=== PATIENT | female | born 1980 | race Caucasian/White ===

== ENCOUNTER 2017-09-15 17:11 | Inpatient (IN) ==
[~2017-09-15 17:11] MED LIST: Glycopyrrolate Inj 1 MG/5 ML Syringe IV.PUSH ONE
[2017-09-15] MEDS ORDERED: Vancomycin Inj 1 GM/200 ML PIGGYBACK IV.SIG ONE (17:33)
[2017-09-15] MEDS ORDERED: Ampicillin/Sulbactam Inj 3 GM in Sodium Chloride 0.9% Inj 100 ML IV.SIG ONE (17:33)
[2017-09-15] MEDS ORDERED: Sod Chloride 0.9% Inj 1,000 ML IV.SIG ONE (17:33)
[2017-09-15] MEDS ORDERED: Dexamethasone Inj 20 MG/5 ML Vial IV.PUSH ONE (17:47)
[2017-09-15 18:11] LABS: Baso # (Auto) 0.2 th/mm3 (0.0-0.2); Baso % (Auto) 1.6 % (0.0-2.0); Hematocrit 29.9 % (35.0-46.0); Hemoglobin 9.5 gm/dL (11.6-15.3); Lymph # (Auto) 0.9 th/mm3 (1.0-4.8); Lymph % (Auto) 5.9 % (9.0-44.0); Mean Corpuscular HGB Conc 31.7 % (32.0-36.0); Mean Corpuscular Hemoglobin 22.7 pg (27.0-34.0); Mean Corpuscular Volume 71.5 fL (80.0-100.0); Mean Platelet Volume 9.2 fL (7.0-11.0); Mono # (Auto) 0.8 th/mm3 (0.0-0.9); Mono % (Auto) 5.2 % (0.0-8.0); Neut # (Auto) 12.6 th/mm3 (1.8-7.7); Neut % (Auto) 87.3 % (16.0-70.0); Platelet Count 484 th/mm3 (150-450); Red Blood Count 4.18 mil/mm3 (4.00-5.30); Red Cell Distribution Width 20.2 % (11.6-17.2); White Blood Count 14.5 th/mm3 (4.0-11.0)
[2017-09-15 18:21] LABS: Chloride 99 meq/L (98-107); Potassium 3.9 meq/L (3.5-5.1); Sodium 137 meq/L (136-145)
[2017-09-15 18:24] LABS: Calcium 9.1 mg/dL (8.5-10.1)
--- NOTE | 2017-09-15 18:24 | ED ---
HPI General Chief complaint: Dental/Oral Stated complaint: Swollen tongue/diff swallowing Time Seen by Provider: 09/15/17 17:27 History of Present Illness HPI narrative: This is a 37-year-old female who presents to the emergency department having had a wisdom tooth extraction 5 days ago, reporting increasing tongue swelling since then. Her tongue has gotten more swollen, constant, severe and she started to have some neck swelling. She is feels like she is gotten much worse in the past day. She has been feeling feverish. She has been unable to eat or drink for 2-3 days. She denies any trouble breathing at this time. Related Data Home Medications Medication Instructions Recorded Confirmed amoxicillin 500 mg PO TID 09/15/17 09/15/17 hydrocodone-acetaminophen 1 tab PO Q4-6H PRN 09/15/17 09/15/17 Allergies Allergy/AdvReac Type Severity Reaction Status Date / Time No Known Allergies Allergy Verified 09/15/17 17:18 Review of Systems Except as stated in HPI: all other systems reviewed are negative [facility] Medical History Medical History Patient denies medical problems (Acute) Surgical History Surgical History No history of previous surgery (Acute) Social History Social History Substance History: Active Abuse Second Hand Smoke Exposure: No Smoking Status: Never smoker How Often Do You Have a Drink Containing Alcohol: 2 to 4 times a month Recent Travel in [facility] within the Last 8 Weeks: No Recent Out of Country Travel within the Last 8 Weeks: No Substance Abuse Detail Marijuana: Substance Use Status: Active Route Used Substance Abuse: Inhalation Reason for Use: Feels Good Immunization History Tetanus Immunization: Unsure Hx Influenza Vaccine This Season: No Exam Narrative Exam Narrative: GENERAL:Well appearing, no acute distress SKIN: Focused skin assessment warm and dry. HEAD: Atraumatic. Normocephalic. EYES: Pupils equal and round. No injection or drainage. ENT: Tongue is swollen pushed up to the roof of the mouth. Posterior pharynx is not visible. Submandibular area is full and tense and swelling extends over the anterior neck. Patient has trismus. There is no audible stridor and she is breathing comfortably. NECK: Trachea midline. CARDIOVASCULAR: Regular rate and rhythm. No murmur appreciated. RESPIRATORY: Clear to auscultation. Breath sounds equal bilaterally. GASTROINTESTINAL: Abdomen soft, non-tender, nondistended. MUSCULOSKELETAL: No obvious deformities. NEUROLOGICAL: Awake and alert. No obvious cranial nerve deficits. Moving all extremities. PSYCHIATRIC: Appropriate mood and affect; insight and judgment normal. Course Initial Documented Vital Signs Temperature 100.0 F H 09/15/17 17:18 Pulse Rate 127 H 09/15/17 17:18 Respiratory Rate 16 09/15/17 17:18 Blood Pressure 123/80 09/15/17 17:18 Pulse Oximetry 97 09/15/17 17:18 Last Documented Vital Signs Temperature 98.7 F 09/15/17 20:00 Pulse Rate 100 H 09/15/17 20:00 Respiratory Rate 22 09/15/17 20:00 Blood Pressure 132/90 09/15/17 20:00 Pulse Oximetry 98 09/15/17 20:00 Critical Care Time Critical Care Time: Yes Total Critical Care Time: 40 Attestation: Aggregate critical care time was 40 minutes. Time to perform other separately billable procedures was not included in the critical care time. My time did not include minutes spent treating any other patients simultaneously or on activities that did not directly contribute to the patient's treatment. The services I provided to this patient were to treat and/or prevent clinically significant deterioration that could result in: disability, I provided critical care services requiring my management, as noted below: Chart data review, documentation time, medication orders and management, vital sign assessments/reviewing monitor data, ordering and reviewing lab tests, ordering and interpreting/reviewing x-rays and diagnostic studies, care of the patient and discussion of the patient with the admitting physicians. Medical Decision Making MDM Narrative Medical decision making narrative: This is a 37-year-old female who presents to the emergency department with increasing swelling in her mouth related to wisdom tooth extraction 5 days ago. She has a impressive physical exam consistent with Jordon's angina with tachycardia and fever. She was placed on a monitor and an IV was established. She was started on IV antibiotics and IV dexamethasone. I discussed the case with Dr. Puente who is aware of the patient and I discussed the case with Dr. Smart who is the fire code inspector on-call at the [facility]. Given she currently is not having any dyspnea I think it is reasonable to transfer her to the main hospital where anesthesia and surgery can support her airway if it ultimately needs to be secured. I think she is stable for transport and risk of securing the airway here would outweigh the benefit. Differential Diagnosis Differential Diagnosis: Jordon's angina, sepsis, facial abscess Lab Data Result diagrams: 09/15/17 17:54 09/15/17 17:54 Lab Results 09/15/17 09/15/17 09/15/17 Range/Units 17:54 17:54 17:57 CBC w Diff Slide review pending WBC 14.5 H (4.0-11.0) th/mm3 RBC 4.18 (4.00-5.30) mil/mm3 Hgb 9.5 L (11.6-15.3) gm/dL Hct 29.9 L (35.0-46.0) % MCV 71.5 L (80.0-100.0) fL MCH 22.7 L (27.0-34.0) pg MCHC 31.7 L (32.0-36.0) % RDW 20.2 H (11.6-17.2) % Plt Count 484 H (150-450) th/mm3 MPV 9.2 (7.0-11.0) fL Neut % (Auto) 87.3 H (16.0-70.0) % Lymph % (Auto) 5.9 L (9.0-44.0) % Mills % (Auto) 5.2 (0.0-8.0) % Eos % (Auto) 0.0 (0.0-4.0) % Baso % (Auto) 1.6 (0.0-2.0) % Neut # (Auto) 12.6 H (1.8-7.7) th/mm3 Lymph # (Auto) 0.9 L (1.0-4.8) th/mm3 Mills # (Auto) 0.8 (0.0-0.9) th/mm3 Eos # (Auto) 0.0 (0.0-0.4) th/mm3 Baso # (Auto) 0.2 (0.0-0.2) th/mm3 WBC Differential . Diff Scan Auto diff confirmed Differential Comment . Sodium 137 (136-145) meq/L Potassium 3.9 (3.5-5.1) meq/L Chloride 99 (98-107) meq/L Carbon Dioxide 26.4 (21.0-32.0) meq/L Anion Gap 12 (5-15) meq/L BUN 12 (7-18) mg/dL Creatinine 0.86 (0.50-1.00) mg/dL Estimated GFR 74 L (>89) mL/min Random Glucose 98 (74-106) mg/dL Lactic Acid 0.8 (0.4-2.0) mmol/L Calcium 9.1 (8.5-10.1) mg/dL Total Bilirubin 0.5 (0.2-1.0) mg/dL AST 15 (15-37) U/L ALT 11 (10-53) U/L Alkaline Phosphatase 122 H (45-117) U/L Total Protein 9.3 H (6.4-8.2) g/dL Albumin 3.3 L (3.4-5.0) g/dL Imaging Data Radiologist's impression: Soft Tissue Neck CT 09/15/17 17:37 CONCLUSION: Left floor of mouth abscess with adenopathy. Discharge Plan Discharge Disposition Patient Disposition: 30 Still Patient Discharge Condition Condition: Stable Discharge Details Diagnosis: Abscess of oral space Physicians Team ED Provider: Cuca Rider Primary Care Provider: Primary Care Catherine Mejias Attending Provider: Macario Smart Other Providers: Eyad Puente Status ED Status: Left Department Discharge Information Discharge Date/Time: 09/15/17 19:28
[2017-09-15 18:25] LABS: Albumin 3.3 g/dL (3.4-5.0); Anion Gap 12 meq/L (5-15); Blood Urea Nitrogen 12 mg/dL (7-18); Carbon Dioxide 26.4 meq/L (21.0-32.0); Glucose,Random 98 mg/dL (74-106)
[2017-09-15 18:28] LABS: Alanine Aminotransferase 11 U/L (10-53); Aspartate Aminotransferase 15 U/L (15-37); Glomerular Filtration Rate 74 mL/min (>89)
[2017-09-15 18:29] LABS: Total Protein 9.3 g/dL (6.4-8.2)
[2017-09-15 18:31] LABS: Alkaline Phosphatase 122 U/L (45-117)
--- NOTE | 2017-09-15 18:52 | CT ---
EXAM DATE: 09/15/2017 6:34 PM EDT AGE/SEX: 37 years / Female INDICATIONS: Recent left dental extraction about one week ago. Now complains of left jaw pain and sw elling, and unable to open mouth. CLINICAL DATA: This is the patient's initial encounter. Patient reports that signs and symptoms have been present for 2 days and indicates a pain score of 8/10. MEDICAL/SURGICAL HISTORY: None. None. RADIATION DOSE: 16.45 CTDI (mGy) COMPARISON: No prior exams available for comparison. TECHNIQUE: Helical acquisition was performed using a multirow detector CT scanner during the adminis tration of 65 ml Omnipaque 350 (iohexol) nonionic water-soluble contrast as a single exam dose. Usi ng automated exposure control and adjustment of the mA and/or kV according to patient size, radiation dose was kept as low as reasonably achievable to obtain optimal diagnostic quality images. DICOM fo rmat image data is available electronically for review and comparison. FINDINGS: There is a fluid collection involving the floor the mouth on the left. This has air within it. This appears to have several septations. This extends into the left tonsillar fossa and associat ed with increased density in the left nasopharynx and parapharyngeal region. This fluid collection me asures approximate 6 cm in AP dimension, 2.8 cm in transverse dimension and extends over a 4 cm heigh t. It displaces the airway at the oropharynx towards the right. There are mildly prominent lymph node s in the floor the mouth region, in the anterior and posterior triangle regions. There is a left diga stric lymph node measuring up to 1.5 cm. There is lucency seen around the left lower first molar. It appears the left third molar has been removed. The larynx appears normal. The thyroid is normal. CONCLUSION: Left floor of mouth abscess with adenopathy. Electronically signed by: Leo Duffy MD 09/15/2017 6:51 PM EDT
[2017-09-15] MEDS ORDERED: Ketamine Inj 50 MG/5 ML Syringe IV.PUSH ONE (20:22)
--- NOTE | 2017-09-15 20:47 | MB ---
cc: Eyad Puente DMD DATE: 09/15/2017 DATE OF CONSULTATION SEEN: 09/15/2017. HISTORY OF PRESENT ILLNESS: This is a pleasant 37-year-old female who was seen and examined in the ICU. She was transferred from the [facility], and she was there with her fiance secondary to having swelling and difficulty swallowing for the last 2-3 days. The patient had a wisdom tooth left on the mandible extracted 5 days ago. She also had a decayed tooth, what I believe is to be tooth #19 region. She is here on vacation now and for the last several days it has been getting worse. She has been on p.o. amoxicillin, but was not resolving. So since it did work, she decided to go to the ER today. I have seen and examined the patient. The nurses, anesthesiologist, , the parents are all at bedside. PAST MEDICAL HISTORY: Denied. MEDICATIONS: Denied. PAST SURGICAL HISTORY: Denied. SOCIAL HISTORY: Denies any tobacco. Denies any illicit drug use. Reports occasional alcohol. PHYSICAL EXAMINATION: HEENT: Examination shows that she has a large neck edema bilaterally, more on the left side than on the right, submandibular sublingual space going to the submental space, then crossing over on the right hand side, near the region of the submandibular space. It is slightly more firm and tender on the left submandibular region, sublingual region. The trachea is at midline. She is not able to protrude the tongue. There is elevation of the tongue. Able to put my finger in the mouth. She has limited opening secondary to pain. There is elevation of floor of the mouth on the left side. Again, the patient is in discomfort, so not letting me completely finish the exam. She is using a Yankauer suction at bedside to hold the secretions, though she is able to swallow some secretions. VITAL SIGNS: Temperature 100 degrees, pulse is 127, respirations 16, blood pressure 120/80, with oxygen saturation of 97%. LABORATORY DATA: White count is 14.5 with an H and H of 9.5 and 29.5, with platelets of 484. IMAGING: CT scan of the neck shows an abscess collection on the floor of the mouth, more on the left side. I see some gas inside that site. It is in the submandibular region, sublingual, going to the posterior oropharynx. It most appears to be more concentrated on the left side, but we could see edema also on the right side too. The left tooth #19, I believe appears to be decayed, broken, with a periapical radiolucency that is there. Recent extraction of the wisdom tooth #17 also noted. There is also some shifting of the airway, with some towards the right oropharynx side. IMPRESSION: This is a 37-year-old female with a history of decayed tooth, decayed pain on the left mandible, with recent history of taking out a wisdom tooth. She still has a tooth #19 that appears to be decayed. Now, she presents with an abscess infection involving the left submandibular regions, left masseteric region, left sublingual space, difficulty opening the mouth, elevation of floor of the mouth and the tongue. The edema extends past the midline and is going on the right hand side to the right submandibular region. The trachea is at midline. PLAN: At this point is to take the patient to the main operating room and do this incision and drainage in her neck multi-space infection/abscess, extract any necessary teeth, especially the tooth #19 in the mouth. Did discuss with the patient and her fiance in detail that she most likely will be kept intubated overnight and maybe another day as needed. Incision and drainage through the neck into the mouth approaches, possible tracheostomy if required, further surgeries as required, further incision and drainage as required, all questions and concerns were addressed, risk of scar formation, nerve involvement all discussed. All questions and concerns were addressed. Consent is signed, in the chart. BUFFY Morton , 08:19 PM , 08:46 PM ALIREZA
[2017-09-15] MEDS ORDERED: Acetaminophen 325 MG Tablet PO PRN (21:26)
[2017-09-15] MEDS ORDERED: Morphine Sulfate Inj 2 MG/ML Vial IV.PUSH PRN (21:26)
[2017-09-15] MEDS ORDERED: Bisacodyl 10 MG Supp RECTAL PRN (21:26)
--- NOTE | 2017-09-15 21:39 | P.HPCC ---
History of Present Illness Primary Care Physician: No Primary Care Physician History of Present Illness: 37-year-old female who had a wisdom tooth extraction 5 days ago, presents today reporting increasing tongue swelling since then. Her tongue has gotten more swollen, constant, severe and she started to have some neck swelling. She is feels like she is gotten much worse in the past day. She has been feeling feverish and she has been unable to eat or drink for 2-3 days. She denies any trouble breathing at this time. 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 Postoperatively patient will remain intubated overnight in the ICU. Inpatient Certification: I certify that the inpatient services were ordered in accordance with Medicare regulations governing the order. This includes certification that hospital inpatient services are reasonable and necessary and in the case of services not specified as inpatient-only under 42 CFR 419.22(n), that they are appropriately provided as inpatient services in accordance to with the 2-midnight benchmark under 43 CFR 412.3(e) Estimated Total Length of Stay (Days): 5 Plans for Post Hospital Care: Not yet determined Review of Systems other Unable to obtain due to patient's inability to speak due to an airway edema PMFSH - History History Provided By: Patient, Family Member - Medical History Medical History: Medical History (Last Reviewed 09/15/17 @ 18:20 by Cuca Rider MD) Patient denies medical problems - Surgical History Surgical History: Surgical History (Last Updated 09/15/17 @ 17:32 by Rossana Pan) No history of previous surgery - Tobacco History Second Hand Smoke Exposure: No Smoking Status: Never smoker - Alcohol History How Often Do You Have a Drink Containing Alcohol: 2 to 4 times a month - Substance Use History Substance History: Active Abuse - Substance Use Type Marijuana Status: Active Route Used: Inhalation Reason for Use: Feels Good - Travel History Recent Travel in the [place] Within the Last 8 Weeks: No Recent Travel Out of the Country Within the Last 8 Weeks: No - Immunization History Tetanus Immunization: Unsure Hx Influenza Vaccine This Season: No Medications and Allergies Active Medications: Active Medications Acetaminophen (Tylenol) 650 mg PO Q6H PRN PRN Reason: PAIN 1-10 AND/OR FEVER >101F Al Hydroxide/Mg Hydroxide (Milk Of Magnesia Liq) 30 ml PO Q12H PRN PRN Reason: Mild Constipation Albuterol (Duoneb Neb (Prn)) 1 ampul NEB Q2HR NEB PRN PRN Reason: WHEEZING Bisacodyl (Dulcolax Supp) 10 mg RECTAL DAILY PRN PRN Reason: SEVERE CONSITIPATION Chlorhexidine Gluconate (Peridex 0.12% Oral Kit) 15 ml OROPHARYNG BID@0800, 2000 [facility] Chlorhexidine Gluconate (Chlorhexidine 2% Cloth) 3 pack TOPICAL DAILY@0400 BUTCH Stop: 09/21/17 03:59 Chlorhexidine Gluconate (Chlorhexidine 2% Cloth) 3 pack TOPICAL DAILY@0400 PRN PRN Reason: Extra cloth needed Stop: 09/21/17 03:59 Famotidine (Pepcid Pf Inj) 20 mg IV.PUSH Q12HR BUTCH Heparin Sodium (Porcine) (Heparin Inj) 5,000 units SQ Q8H BUTCH Sodium Chloride (Ns Inj) 1,000 mls @ 84 mls/hr IV.CONT .[id number] BUTCH Ampicillin Sodium/Sulbactam (Sodium 3 gm/ Sodium Chloride) 100 mls @ 200 mls/ hr IV.SIG Q6H BUTCH Propofol (Diprivan 1000 Mg/100 Ml Inj) 1,000 mg in 100 mls @ 2.19 mls/hr IV.CONT TITRATE PRN; Protocol PRN Reason: Per Protocol Lactulose (Lactulose Liq) 30 ml PO DAILY PRN PRN Reason: SEVERE CONSITIPATION Morphine Sulfate (Morphine Inj) 2 mg IV.PUSH Q2H PRN PRN Reason: PAIN SCALE 6 TO 10 Ondansetron HCl (Zofran Inj) 4 mg IV.PUSH Q6H PRN PRN Reason: NAUSEA OR VOMITING Senna/Docusate Sodium (Celine-Colace) 1 tab PO BID [facility] Sennosides (Senokot) 17.2 mg PO Q12H PRN PRN Reason: Moderate Constipation Sodium Chloride (Ns Flush) 2 ml IV.FLUSH BID BUTCH Sodium Chloride (Ns Flush) 2 ml IV.FLUSH PRN PRN PRN Reason: FLUSH AFTER USING IV ACCESS Allergies Allergy/AdvReac Type Severity Reaction Status Date / Time No Known Allergies Allergy Verified 09/15/17 17:18 Home Medications Medication Instructions Recorded Confirmed Type amoxicillin 500 mg PO TID 09/15/17 09/15/17 History hydrocodone-acetaminophen 1 tab PO Q4-6H PRN 09/15/17 09/15/17 History Results - Labs CBC & Chem 7: 09/15/17 17:54 09/15/17 17:54 Labs: Short CBC 09/15/17 Range/Units 17:54 WBC 14.5 H (4.0-11.0) th/mm3 Hgb 9.5 L (11.6-15.3) gm/dL Hct 29.9 L (35.0-46.0) % Plt Count 484 H (150-450) th/mm3 BMP 09/15/17 17:54 Sodium 137 Potassium 3.9 Chloride 99 Carbon Dioxide 26.4 BUN 12 Creatinine 0.86 Calcium 9.1 Liver Function 09/15/17 Range/Units 17:54 Total Bilirubin 0.5 (0.2-1.0) mg/dL AST 15 (15-37) U/L ALT 11 (10-53) U/L Alkaline Phosphatase 122 H (45-117) U/L Albumin 3.3 L (3.4-5.0) g/dL - Imaging Impressions Soft Tissue Neck CT 09/15/17 17:37 CONCLUSION: Left floor of mouth abscess with adenopathy. Exam Vital signs: Vital Signs 09/15/17 17:18 09/15/17 20:00 Temperature 100.0 F H 98.7 F Pulse Rate 127 H 100 H Respiratory Rate 16 22 Blood Pressure 123/80 132/90 Pulse Oximetry 97 98 Intake & Output 09/15/17 09/15/17 09/16/17 06:59 18:59 06:59 Weight 73 kg - Constitutional mild distress - Routine HEENT Exam Head: Present: normocephalic, atraumatic Eye: Present: PERRL ENT: Present: mucous membranes moist - Routine Neck Exam Present: supple, full ROM, lymphadenopathy, swelling, trachea midline. Absent: JVD, carotid bruit - Routine Respiratory Exam Absent: accessory muscle use, rhonchi, stridor, wheezes - Routine Cardiovascular Exam Present: RRR, S1, S2 - Routine Abdominal Exam Present: soft, normoactive bowel sounds - Routine Extremities Exam Absent: cyanosis, clubbing, edema - Routine Skin Exam Present: intact - Routine Neurological Exam Present: alert, oriented X3. Absent: sensory deficit, motor deficit Caprini VTE Risk Assessment Caprini VTE Risk Assessment: Moderate/High Risk (score >= 2) Caprini Risk Assessment Model: Point Value = 1 Point Value = 2 Point Value = 3 Point Value = 5 Age 41-60 Minor surgery BMI > 25 kg/m2 Swollen legs Varicose veins or History of unexplained or recurrent spontaneous Oral contraceptives or hormone replacement Sepsis (< 1 month) Serious lung disease, including pneumonia (< 1 month) Abnormal pulmonary function Acute myocardial infarction Congestive heart failure (< 1 month) History of inflammatory bowel disease Medical patient at bed rest Age 61-74 Arthroscopic surgery Major open surgery (> 45 min) Laparoscopic surgery (> 45 min) Malignancy Confined to bed (> 72 hours) Immobilizing plaster cast Central venous access Age >= 75 History of VTE Family history of VTE Factor V Leiden Prothrombin [id number] Lupus anticoagulant Anticardiolipin antibodies Elevated serum homocysteine Heparin-induced thrombocytopenia Other congenital or acquired thrombophilia Stroke (< 1 month) Elective arthroplasty Hip, pelvis, or leg fracture Acute spinal cord injury (< 1 month) Prophylaxis Regimen: Total Risk Factor Score Risk Level Prophylaxis Regimen 0-1 Low Early ambulation 2 Moderate Order ONE of the following: *Sequential Compression Device (SCD) *Heparin 5000 units SQ BID 3-4 Higher Order ONE of the following medications: *Heparin 5000 units SQ TID *Enoxaparin/Lovenox 40 mg SQ daily (WT < 150 kg, CrCl > 30 mL/min) *Enoxaparin/Lovenox 30 mg SQ daily (WT < 150 kg, CrCl > 10-29 mL/min) *Enoxaparin/Lovenox 30 mg SQ BID (WT < 150 kg, CrCl > 30 mL/min) AND/OR *Sequential Compression Device (SCD) 5 or more Highest Order ONE of the following medications: *Heparin 5000 units SQ TID (Preferred with Epidurals) *Enoxaparin/Lovenox 40 mg SQ daily (WT < 150 kg, CrCl > 30 mL/min) *Enoxaparin/Lovenox 30 mg SQ daily (WT < 150 kg, CrCl > 10-29 mL/min) *Enoxaparin/Lovenox 30 mg SQ BID (WT < 150 kg, CrCl > 30 mL/min) AND *Sequential Compression Device (SCD) Assessment and Plan - Assessment and Plan Plan: Respiratory failure -Postoperatively -Vent bundle -DuoNeb's as needed -SBT daily with attempt to wean and extubate a Left floor of mouth abscess with adenopathy -Emergent OR by OMFS for drainage -Unasyn 3 every 6 hours -ID consultation Critical Care: The total critical care time was 35 minutes. Time to perform other separately billable procedures was not included in the critical care time.
--- NOTE | 2017-09-15 22:33 | P.PCN ---
Date of procedure: 09/15/17 Pre-op diagnosis: decayed teeth 18/19/31, b/l neck multispace infection/abscess Post-op diagnosis: same Procedure: I & D left neck submandibular/sublingual/mental/masseteric/medial pterygoid space abscess/infection I & D right neck submandibular space edema/infection extraction of teeth 18/19, root of 31 exam under anesthesia Anesthesia: GETA, local (2%lidocaine with 1:200,000 epi approx 10 cc) Surgeon: Eyad Puente Estimated blood loss (mL): 10 Condition: stable (intubated) Disposition: ICU
[2017-09-15] MEDS ORDERED: fentaNYL Citrate Inj 100 MCG/2 ML Ampul ONE (22:35)
[2017-09-15] MEDS ORDERED: Morphine Inj 4 MG/ML Vial ONE (22:36)
[2017-09-16] MEDS: Propofol 1000 mg/100 ml Inj 1,000 MG/100 ML BOTTLE IV.CONT PRN ×5 (00:19→14:08)
[2017-09-16 00:44] LABS: ABG Base Excess 3.6 mmol/L (-2-2); ABG PCO2 35 mmHg (38-42); ABG PO2 225 mmHg (61-120)
[2017-09-16] MEDS: Ampicillin/Sulbactam Inj 3 GM in Sodium Chloride 0.9% Inj 100 ML IV.SIG SCH ×5 (01:37→22:39)
[2017-09-16 03:54] LABS: Baso % (Auto) 0.1 % (0.0-2.0); Hematocrit 25.4 % (35.0-46.0); Hemoglobin 8.3 gm/dL (11.6-15.3); Lymph # (Auto) 1.1 th/mm3 (1.0-4.8); Lymph % (Auto) 8.3 % (9.0-44.0); Mean Corpuscular HGB Conc 32.6 % (32.0-36.0); Mean Corpuscular Hemoglobin 22.3 pg (27.0-34.0); Mean Corpuscular Volume 68.4 fL (80.0-100.0); Mean Platelet Volume 8.6 fL (7.0-11.0); Mono # (Auto) 0.2 th/mm3 (0.0-0.9); Mono % (Auto) 1.2 % (0.0-8.0); Neut # (Auto) 11.9 th/mm3 (1.8-7.7); Neut % (Auto) 90.4 % (16.0-70.0); Platelet Count 419 th/mm3 (150-450); Red Blood Count 3.71 mil/mm3 (4.00-5.30); Red Cell Distribution Width 21.3 % (11.6-17.2); White Blood Count 13.2 th/mm3 (4.0-11.0)
[2017-09-16 03:58] LABS: Activated Partial Thrombo Time 25.4 sec (24.3-30.1); INR 1.2 Ratio; Prothrombin Time 11.9 sec (9.8-11.6)
[2017-09-16] MEDS ORDERED: MethylPREDNISolone Sod Succinate Inj 40 MG/ML Vial IV.PUSH ONE (04:00)
[2017-09-16] MEDS ORDERED: Chlorhexidine Gluconate 2% 1 Pack (2 Cloths) TOPICAL PRN (04:00)
[2017-09-16 04:16] LABS: Albumin 2.9 g/dL (3.4-5.0); Anion Gap 12 meq/L (5-15); Aspartate Aminotransferase 10 U/L (15-37); Blood Urea Nitrogen 14 mg/dL (7-18); Calcium 8.8 mg/dL (8.5-10.1); Carbon Dioxide 25.3 meq/L (21.0-32.0); Chloride 103 meq/L (98-107); Glomerular Filtration Rate 84 mL/min (>89); Glucose,Random 151 mg/dL (74-106); Potassium 4.1 meq/L (3.5-5.1); Sodium 140 meq/L (136-145)
[2017-09-16 04:20] LABS: Alanine Aminotransferase 11 U/L (10-53); Alkaline Phosphatase 109 U/L (45-117); Phosphorus 3.3 mg/dL (2.5-4.9); Total Protein 8.2 g/dL (6.4-8.2)
[2017-09-16] MEDS: Heparin - SQ 10,000 UNITS/ML Vial SQ SCH ×4 (04:22→22:39)
--- NOTE | 2017-09-16 04:50 | XR ---
EXAM DATE: 09/16/2017 4:38 AM EDT AGE/SEX: 37 years / Female INDICATIONS: Respiratory failure. CLINICAL DATA: This is the patient's initial encounter. Patient reports that signs and symptoms have been present for 2 days and indicates a pain score of Nonresponsive. MEDICAL/SURGICAL HISTORY: Non-responsive. Non-responsive. COMPARISON: No prior exams available for comparison. FINDINGS: Endotracheal tube in good position. No focal consolidation or significant effusion. Heart size upper limits normal. No pneumothorax. CONCLUSION: Endotracheal tube in good position. No significant lung consolidation. Electronically signed by: Dakota Metz MD 09/16/2017 4:48 AM EDT
[2017-09-16] MEDS: Morphine Inj 4 MG/ML Vial IV.PUSH PRN ×3 (04:57→23:00)
--- NOTE | 2017-09-16 07:51 | P.PNCC ---
Subjective Subjective Remarks/Hospital Course: 37-year-old female who had a wisdom tooth extraction 5 days ago, presents today reporting increasing tongue swelling since then. Her tongue has gotten more swollen, constant, severe and she started to have some neck swelling. She is feels like she is gotten much worse in the past day. She has been feeling feverish and she has been unable to eat or drink for 2-3 days. She denies any trouble breathing at this time. 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 Postoperatively patient will remain intubated overnight in the ICU. 09/16: Patient is status post I & D left neck submandibular/sublingual abscess/ infection. I & D right neck submandibular space edema/infection, extraction of teeth 18/19, root of [address] Puente. Remains intubated today. I discussed with Dr. Puente. Patient's tongue was swollen yesterday, with airway compromise requiring nasotracheal intubation for OR. Will leave intubated until evaluated by Dr. Puente, add decadron 4 mg IV q6 Objective Vital Signs / I&O: Vital Signs 09/15/17 17:18 09/15/17 20:00 09/15/17 23:46 Temperature 100.0 F H 98.7 F Pulse Rate 127 H 100 H Respiratory Rate 16 22 16 Blood Pressure 123/80 132/90 Pulse Oximetry 97 98 100 09/16/17 00:00 09/16/17 03:55 09/16/17 04:00 Temperature 98.4 F 98.4 F Pulse Rate 98 H 90 Respiratory Rate 16 15 Blood Pressure 134/83 149/89 H Pulse Oximetry 100 100 100 Intake & Output 09/15/17 09/16/17 09/16/17 18:59 06:59 18:59 Intake Total 291 / 291 Output Total 550 / 550 Balance -259 / -259 Weight 73 kg Intake: IV 291 / 291 Diprivan 1000 mg/100 ml Inj 1, 91 / 91 000 mg In 100 ml @ 5 MCG/KG/MIN 2.19 mls/hr IV.CONT TITRATE PRN Rx#:[id number] Unasyn Inj 3 GM In NS Inj 100 200 / 200 ML @ 200 mls/hr IV.SIG Q6H BUTCH Rx#:[id number] Output: Urine Amount (Catheter) 550 / 550 Indwelling Urethral Catheter 550 / 550 Other: Weight On Admission 73.4 kg Result Diagrams: 09/16/17 03:12 09/16/17 03:12 Objective Remarks: GEN: Intubated sedated Head: Present: normocephalic, atraumatic Eye: Present: PERRL ENT: Endotracheally intubated, ET tube limits exam Neck Exam: Anterior dressing in place, Drains x4 Respiratory: No rhonchi, stridor, wheezes Cardiovascular: RRR, S1, S2 Abdomen: Soft, normoactive bowel sounds. Nontender Extremities: Cyanosis, clubbing, edema Neuro: Alert awake, no focal deficit. Following commands Assessment and Plan - Assessment and Plan Plan: A/P: Neuro: -Propofol for sedation and vent synchrony -Add fentanyl for continuous pain control, and Versed for additional sedation -Morphine for breakthrough pain Resp/ENT: Acute respiratory failure Left floor of mouth abscess with adenopathy -Status post I&D as above. Postop management per Dr. Puente -Vent bundle, DuoNeb's as needed -According to no significant posterior tongue swelling with airway compromise -Add Decadron 4 mg IV every 6 hours -IV Lasix 20 mg x1 CVS: -Hypertensive most likely from pain ID: Sepsis Left floor of mouth abscess -Unasyn 3 every 6 hours -ID consultation requested ENDO: -Electrolyte replacement protocol Sepsis: -Follow-up on cultures continue antibiotics as above Critical Care: The total critical care time was 35 minutes. Code Status: Full Discussed Condition With: Dr. Puente
[2017-09-16] MEDS: Famotidine PF Inj 20 MG/2 ML Vial IV.PUSH SCH ×2 (08:08→22:40)
[2017-09-16] MEDS: Chlorhexidine 0.12% Oral Kit 15 ML UDC OROPHARYNG SCH (08:08)
[2017-09-16] MEDS: Senna/Docusate Sodium 8.6/50 MG Tablet PO SCH (08:09)
[2017-09-16] MEDS ORDERED: fentaNYL 10 mcg/mL Premix Drip 2,500 MCG/250 ML BAG IV.SIG PRN (08:22)
[2017-09-16] MEDS: Chlorhexidine Gluconate 2% 1 Pack (2 Cloths) TOPICAL SCH (09:04)
[2017-09-16] MEDS: Sod Chloride 0.9% Inj 1,000 ML IV.CONT SCH ×2 (09:04→11:14)
[2017-09-16] MEDS: Oral Hygiene Kit OROPHARYNG SCH ×3 (09:04→15:45)
--- NOTE | 2017-09-16 10:24 | MP ---
cc: Eyad Puente DMD DATE OF OPERATION: 09/15/2017 PREOPERATIVE DIAGNOSIS: Decayed teeth, numbers 17, 19 and 31, also bilateral neck multi-space infection/abscess. POSTOPERATIVE DIAGNOSIS: Decayed teeth, numbers 17, 19 and 31, also bilateral neck multi-space infection/abscess. PROCEDURE PERFORMED: Incision and drainage of the left submandibular/sublingual/mental/masseteric/medial pterygoid space abscess less infection. Also, incision and drainage of the right neck submandibular space edema/infection, extraction of teeth numbers 18 and 19, with the root of 31, exam under anesthesia. ANESTHESIA: General, also, 2% lidocaine with 1:200,000 epinephrine, approximately 10 mL. SURGEON: Eyad Puente DMD [employer]: laboratory mechanical technician or staff, [place]. ESTIMATED BLOOD LOSS: Minimal. DISPOSITION: The patient tolerated the procedure well, still intubated and taken back to the ICU. INDICATIONS FOR PROCEDURE: Ms. Lemus is a 37-year-old female who recently had a tooth extracted 5 days ago, wisdom tooth, secondary to pain, up in [place]. Now, she presents back with continued swelling, difficulty opening her mouth. She has not eaten early or drank over the last 2-3 days because it is progressively getting worse. She needs a Yankauer suction to hold secretions. She has elevation of floor of the mouth and the tongue. She has got edema of bilateral neck, a lot more on the left submandibular, submental region going to the mental region and then proximal to the right submandibular region. Scan shows a large collection on the left hand side. She has got some decayed teeth. It is necessary that the patient undergo the above-listed procedures. Benefits, risks, indications of the procedure in detail are all discussed with the patient and her fiance. All questions and concerns were addressed. Consent signed, in the chart. DESCRIPTION OF PROCEDURE: The patient was taken to the operating suite, draped and put on the table in supine position. She underwent fiberoptic intubation through the nose. It was nice and smooth. At that time, no gross constriction of the airway or deviation that is noted, it was nice and smooth. Once this was done, eyes were taped shut. All pressure points were padded. The patient was then prepped with Betadine solution. At this time, a timeout was taken to identify the patient, the site of the procedure, surgery, all were in agreement. The patient was draped in normal sterile fashion. 2% lidocaine with 1:200,000 epinephrine was injected in the right submandibular region and towards the submental region sublingual, submandibular region on the left hand side. Using a ratchet mouth prop and gently, I was able to open the mouth. She has on the dorsum of the tongue a lot of whitish-greenish Danyelle, appears to be flaky stuff secondary to no brushing the teeth and her gingiva is all again whitish due to not be able to brush her teeth. The tongue is elevated and there is elevation of the floor of the mouth, more significant on the left side than the right side, but is also happening bilaterally, but more on the left side than the right. Also, in the submental region too. Cannot see the posterior airway or the oropharynx. Intraorally, bilateral inferior alveolar blocks was given and long buccal blocks were given. Examination under anesthesia also shows that she has got tooth #18, a lot of calculus and it has got mobility, appears to have decay. #19 is broken on the distal and mobility. Tooth #31 just retained roots. She has got generalized calculus and plaque and several other broken teeth on maxilla. A 15 blade was used to make a sulcular incision from tooth number 18 to 19 to 20. Flap was now reflected. Since the teeth were already moving, elevated and removed the teeth atraumatically. Some pus came around from the 18 and 19 socket. Then, I went to the lingual of that 18, 19 region. Used the periosteal elevator, went straight down to the inferior border of the mandible and posteriorly to the region of tooth #17 and the pus just poured right out, I would say about 30-40 mL of pus just came out at that site. I went all the way down posteriorly. Went again on the buccal aspect and subperiosteally, all the way down to the inferior border of the mandible down to the angle of the mandible. Again, no pus on the buccal aspect, but most likely all of the pus is sitting on the medial aspect of the mandible. Irrigated that nicely with saline solution. Culture was also taken to send that for microbiology. I went posteriorly to the medial pterygoid insertion, back again to the inferior border of the angle on the lingual again and went superiorly also, came back out superiorly and no more pus is noted. Made a 15 blade stab incision in the submandibular region, sublingual region, mental region. I went with the hemostat, dissecting, going superiorly, inferiorly, medially and laterally on the 2 stab incisions sites, not too much pus came out, but still there was some discharge that was noted. Once all the pus, I believe, was taken out, then the site was all irrigated once again with saline solution. I took a 1/4 inch [place] drain and placed it on the left submandibular region, communicating with inside the mouth. Went to the right sublingual region, the submental region and put a #10 Red Rubber catheter right into that side. The hole is cut out for irrigation, to get all the way down to the region of this [place] drain. Finally, put the [place] drain on the lingual posterior of tooth numbers 18 and 17, all the way down to inferior border of the mandible. All the drains were secured into position using 2-0 silk suture. All drains were again irrigated with saline solution. The extraction sites of 18 and 19 were closed with 3-0 chromic suture. The #17 site looks stable. Attention was directed to tooth #31 and elevator forceps were used to take out the broken root. I went to the lingual and buccal with no pus noted, but still irrigated out with saline solution. Finally, since I felt firm on the right submandibular region, I took a 15 blade again and went up there with a hemostat, after making a stab incision medial, lateral, inferior and posterior. I did not get much pus out of that site. Irrigated with saline solution. I put a 1/4 inch [place] drain there. Mouth was all once again irrigated with Peridex solution, which was already done previously. Irrigated again all the drains with saline and Peridex. Back of the throat was suctioned. Now, you can see there is significant increase in the mouth opening, even without the mouth ratchet mouth prop. A lot more easier, allowed more freer. There is still elevation of the tongue secondary to the edema, but I believe it has come down a lot than preoperative. Also, the neck has become a lot softer and you can see the decrease in the neck edema. Now, I am able to see the posterior oropharynx and the uvula. There is no deviation of the posterior oropharynx, the lateral pharyngeal arellano. DISCUSSION: The patient is going to require to be followed by the dentist and oral surgeon to remove the remaining roots later on. We went to multiple areas to drain the submandibular, sublingual, mental region, masseteric space, region of the lateral pharyngeal space, on the medial aspect of that mandible on the left side and the right submandibular. The patient will be kept intubated and sent back to the ICU for airway management. We will consult infectious disease. At the end of the case, the throat pack was removed. Back of the throat was suctioned. All sponge and needle counts were all accounted for. BUFFY Morton , 10:41 PM , 11:34 PM ALIREZA
--- NOTE | 2017-09-16 13:24 | P.CONID ---
History of Present Illness Service: ID Consult date: 09/16/17 Requesting Physician: Eyad Puente Reason for Consult: Jordon angina Primary Care Provider: No Primary Care Physician History of Present Illness: 37-year-old female w/o signifcicant past med history transferred from the [facility], where she presented with swelling and difficulty swallowing for 2-3 days. The patient had a wisdom tooth left on the mandible extracted 5 days prior to admission. She also has another decayed tooth She has been on p.o. amoxicillin, but was not improving. She was evaluated by OMFS and was emergently taken to operating room for the drainage and treatment of the Jordon's angina. Postoperatively patient will remain intubated overnight in the ICU. S/p Incision and drainage of the left submandibular/sublingual/mental/masseteric /medial pterygoid space abscess less infection, incision and drainage of the right neck submandibular space edema/infection, extraction of teeth numbers 18 and 19, with the root of 31, by Dr Puente, She is on Unasyn and vancomycin post op Her vitals are afebrile and stable WBC are elevated @ 13K Review of Systems unobtainable due to endotracheal tube, unobtainable due to mental condition ( sedated) PMFSH - History History Provided By: Patient, Family Member - Medical History Medical History: Medical History (Last Reviewed 11/13/17 @ 11:39 by Cathy Manrique MD) Patient denies medical problems - Surgical History Surgical History: Surgical History (Last Reviewed 11/13/17 @ 11:39 by Cathy Manrique MD) No history of previous surgery - Social History I have reviewed the patient's Social History: Yes - Tobacco History Second Hand Smoke Exposure: No Smoking Status: Never smoker - Alcohol History How Often Do You Have a Drink Containing Alcohol: 2 to 4 times a month - Substance Use History Substance History: Active Abuse - Substance Use Type Marijuana Status: Active Route Used: Inhalation Reason for Use: Feels Good - Travel History Recent Travel in the [facility] Within the Last 8 Weeks: No Recent Travel Out of the Country Within the Last 8 Weeks: No - Immunization History Tetanus Immunization: Unsure Hx Influenza Vaccine This Season: No Medications and Allergies Active Medications: Active Medications Acetaminophen (Tylenol) 650 mg PO Q6H PRN PRN Reason: PAIN 1-10 AND/OR FEVER >101F Al Hydroxide/Mg Hydroxide (Milk Of Farida Zhou) 30 ml PO Q12H PRN PRN Reason: Mild Constipation Albuterol (Duoneb Neb (Prn)) 1 ampul NEB Q2HR NEB PRN PRN Reason: WHEEZING Bisacodyl (Dulcolax Supp) 10 mg RECTAL DAILY PRN PRN Reason: SEVERE CONSITIPATION Chlorhexidine Gluconate (Peridex 0.12% Oral Kit) 15 ml OROPHARYNG BID@0800, [facility] Last Admin: 09/16/17 08:08 Dose: 15 ml Chlorhexidine Gluconate (Chlorhexidine 2% Cloth) 3 pack TOPICAL DAILY@0400 [facility] Stop: 09/21/17 03:59 Last Admin: 09/16/17 09:04 Dose: Not Given Chlorhexidine Gluconate (Chlorhexidine 2% Cloth) 3 pack TOPICAL DAILY@0400 PRN PRN Reason: Extra cloth needed Stop: 09/21/17 03:59 Dexamethasone Sodium Phosphate (Decadron Inj) 4 mg IV.PUSH Q6HR [facility] Stop: 09/17/17 14:00 Last Admin: 09/16/17 11:14 Dose: 4 mg Famotidine (Pepcid Pf Inj) 20 mg IV.PUSH Q12HR [facility] Last Admin: 09/16/17 08:08 Dose: 20 mg Heparin Sodium (Porcine) (Heparin Inj) 5,000 units SQ Q8HR [facility] Last Admin: 09/16/17 09:04 Dose: Not Given Sodium Chloride (Ns Inj) 1,000 mls @ 84 mls/hr IV.CONT .[id number] [facility] Last Admin: 09/16/17 11:14 Dose: 84 mls/hr Ampicillin Sodium/Sulbactam (Sodium 3 gm/ Sodium Chloride) 100 mls @ 200 mls/ hr IV.SIG Q6H [facility] Last Admin: 09/16/17 11:14 Dose: 200 mls/hr Propofol (Diprivan 1000 Mg/100 Ml Inj) 1,000 mg in 100 mls @ 2.19 mls/hr IV.CONT TITRATE PRN; Protocol PRN Reason: Per Protocol Last Admin: 09/16/17 11:21 Dose: 50 mcg/kg/min, 21.9 mls/hr Fentanyl (Fentanyl 10 Mcg/Ml Premix Drip) 2,500 mcg in 250 mls @ 5 mls/hr IV.SIG TITRATE PRN; Protocol PRN Reason: Per Protocol Last Admin: 09/16/17 08:51 Dose: 50 mcg/hr, 5 mls/hr Lactulose (Lactulose Liq) 30 ml PO DAILY PRN PRN Reason: SEVERE CONSITIPATION Miscellaneous Information ([facility] Information) 1 each OTHER UNSCH PRN PRN Reason: SEE LABEL COMMENTS Stop: 09/16/17 23:48 Morphine Sulfate (Morphine Inj) 2 mg IV.PUSH Q2H PRN PRN Reason: PAIN SCALE 6 TO 10 Last Admin: 09/16/17 04:57 Dose: 2 mg Ondansetron HCl (Zofran Inj) 4 mg IV.PUSH Q6H PRN PRN Reason: NAUSEA OR VOMITING Senna/Docusate Sodium (Celine-Colace) 1 tab PO BID [facility] Last Admin: 09/16/17 08:09 Dose: Not Given Sennosides (Senokot) 17.2 mg PO Q12H PRN PRN Reason: Moderate Constipation Sodium Chloride (Ns Flush) 2 ml IV.FLUSH BID [facility] Last Admin: 09/16/17 08:08 Dose: 2 ml Sodium Chloride (Ns Flush) 2 ml IV.FLUSH PRN PRN PRN Reason: FLUSH AFTER USING IV ACCESS Allergies Allergy/AdvReac Type Severity Reaction Status Date / Time No Known Allergies Allergy Verified 09/15/17 17:18 Exam Vital signs: Vital Signs 09/15/17 17:18 09/15/17 20:00 09/15/17 23:46 Temperature 100.0 F H 98.7 F Pulse Rate 127 H 100 H Respiratory Rate 16 22 16 Blood Pressure 123/80 132/90 Pulse Oximetry 97 98 100 09/16/17 00:00 09/16/17 03:55 09/16/17 04:00 Temperature 98.4 F 98.4 F Pulse Rate 98 H 90 Respiratory Rate 16 15 Blood Pressure 134/83 149/89 H Pulse Oximetry 100 100 100 09/16/17 08:00 09/16/17 08:01 09/16/17 11:13 Temperature Pulse Rate 85 Respiratory Rate 15 14 Blood Pressure Pulse Oximetry 100 100 09/16/17 12:00 Temperature 98.4 F Pulse Rate 52 L Respiratory Rate 14 Blood Pressure 113/57 L Pulse Oximetry 100 Intake & Output 09/15/17 09/16/17 09/16/17 18:59 06:59 18:59 Intake Total 291 / 291 200 / 200 Output Total 550 / 550 Balance -259 / -259 200 / 200 Weight 73 kg Intake: IV 291 / 291 200 / 200 Diprivan 1000 mg/100 ml Inj 1, 91 / 91 200 / 200 000 mg In 100 ml @ 5 MCG/KG/MIN 2.19 mls/hr IV.CONT TITRATE PRN Rx#:[id number] Unasyn Inj 3 GM In NS Inj 100 200 / 200 ML @ 200 mls/hr IV.SIG Q6H BUTCH Rx#:[id number] Output: Urine Amount (Catheter) 550 / 550 Indwelling Urethral Catheter 550 / 550 Other: Date of Last Bowel Movement 09/14/17 Weight On Admission 73.4 kg - Constitutional no acute distress - Routine HEENT Exam Head: Present: normocephalic Eye: Present: EOMI, PERRL, conjunctivae pink ENT: Present: mucous membranes moist, nares patent, external ear normal Comments: dressing in p,alce submandibular area; no drainage + edema induration in the L submandibular area Orally intubated - Routine Neck Exam Present: supple, swelling, trachea midline - Routine Respiratory Exam Present: patient mechanically ventilated, CTA bilaterally - Routine Cardiovascular Exam Present: RRR, S1, S2 Comments: perifery weelm perfused - Routine Abdominal Exam Present: soft, normoactive bowel sounds, distended, mass (large firm smooth well circumscribed mass arising from pelvis up to umbilicus, no reaction to palpation) - Detailed Abdominal Exam Comments: no organomegaly - Routine Exam Comments: sheets in place with clear yellow urine + [place] mass - Routine Extremities Exam Present: pulses intact, normal capillary refill - Routine Skin Exam Present: intact (no rash), warm Comments: no rash Results - Labs CBC & Chem 7: 09/16/17 03:12 09/16/17 03:12 Labs: Laboratory Results - last 24 hr 09/15/17 09/15/17 09/15/17 17:54 17:54 17:57 CBC w Diff Slide review pending WBC 14.5 H RBC 4.18 Hgb 9.5 L Hct 29.9 L MCV 71.5 L MCH 22.7 L MCHC 31.7 L RDW 20.2 H Plt Count 484 H MPV 9.2 Neut % (Auto) 87.3 H Lymph % (Auto) 5.9 L Christian % (Auto) 5.2 Eos % (Auto) 0.0 Baso % (Auto) 1.6 Neut # (Auto) 12.6 H Lymph # (Auto) 0.9 L Christian # (Auto) 0.8 Eos # (Auto) 0.0 Baso # (Auto) 0.2 WBC Differential . Diff Scan Auto diff confirmed Differential Comment . PT INR APTT Puncture Site Patient Temperature O2 Saturation ABG pH ABG pCO2 ABG pO2 ABG HCO3 ABG O2 Content ABG Base Excess ABG Methemoglobin Slava Test Hemoglobin Carboxyhemoglobin O2 Delivery Device Vent Setting Inspired O2 Critical Value Sodium 137 Potassium 3.9 Chloride 99 Carbon Dioxide 26.4 Anion Gap 12 BUN 12 Creatinine 0.86 Estimated GFR 74 L Random Glucose 98 Lactic Acid 0.8 Calcium 9.1 Phosphorus Magnesium Total Bilirubin 0.5 AST 15 ALT 11 Alkaline Phosphatase 122 H Total Protein 9.3 H Albumin 3.3 L 09/16/17 09/16/17 09/16/17 00:28 03:12 03:12 CBC w Diff WBC 13.2 H RBC 3.71 L Hgb 8.3 L Hct 25.4 L MCV 68.4 L MCH 22.3 L MCHC 32.6 RDW 21.3 H Plt Count 419 MPV 8.6 Neut % (Auto) 90.4 H Lymph % (Auto) 8.3 L Christian % (Auto) 1.2 Eos % (Auto) 0.0 Baso % (Auto) 0.1 Neut # (Auto) 11.9 H Lymph # (Auto) 1.1 Christian # (Auto) 0.2 Eos # (Auto) 0.0 Baso # (Auto) 0.0 WBC Differential . Diff Scan Differential Comment Auto diff final PT 11.9 H INR 1.2 APTT 25.4 Puncture Site Right radial Patient Temperature 98.6 O2 Saturation 98 ABG pH 7.49 H ABG pCO2 35 L ABG pO2 225 H ABG HCO3 27 H ABG O2 Content 12.2 ABG Base Excess 3.6 H ABG Methemoglobin 1.1 Slava Test Present Hemoglobin 8.5 L Carboxyhemoglobin 1.1 O2 Delivery Device Ventilator Vent Setting See comment Inspired O2 50 Critical Value No Sodium Potassium Chloride Carbon Dioxide Anion Gap BUN Creatinine Estimated GFR Random Glucose Lactic Acid Calcium Phosphorus Magnesium Total Bilirubin AST ALT Alkaline Phosphatase Total Protein Albumin 09/16/17 09/16/17 03:12 03:12 CBC w Diff WBC RBC Hgb Hct MCV MCH MCHC RDW Plt Count MPV Neut % (Auto) Lymph % (Auto) Christian % (Auto) Eos % (Auto) Baso % (Auto) Neut # (Auto) Lymph # (Auto) Christian # (Auto) Eos # (Auto) Baso # (Auto) WBC Differential Diff Scan Differential Comment PT INR APTT Puncture Site Patient Temperature O2 Saturation ABG pH ABG pCO2 ABG pO2 ABG HCO3 ABG O2 Content ABG Base Excess ABG Methemoglobin Slava Test Hemoglobin Carboxyhemoglobin O2 Delivery Device Vent Setting Inspired O2 Critical Value Sodium 140 Potassium 4.1 Chloride 103 Carbon Dioxide 25.3 Anion Gap 12 BUN 14 Creatinine 0.77 Estimated GFR 84 L Random Glucose 151 H Lactic Acid 0.9 Calcium 8.8 Phosphorus 3.3 Magnesium 2.0 Total Bilirubin 0.4 AST 10 L ALT 11 Alkaline Phosphatase 109 Total Protein 8.2 D Albumin 2.9 L - Imaging Impressions Soft Tissue Neck CT 09/15/17 17:37 CONCLUSION: Left floor of mouth abscess with adenopathy. Chest X-Ray 09/16/17 21:28 CONCLUSION: Endotracheal tube in good position. No significant lung consolidation. Assessment and Plan (1) Pelvic mass Status: Acute Code(s): R19.00 - Intra-abdominal and pelvic swelling, mass and lump, unspecified site (2) Abscess of oral space Status: Resolved Code(s): K12.2 - Cellulitis and abscess of mouth - Plan left submandibular/sublingual/mental/masseteric/medial pterygoid space abscess , sp surgical drainage - cl P - Gstain cw mixed oral stephen Pelvic mass; pt' s test was negative at ER - cont Unasyn - dc vancomycin US of pelvis
--- NOTE | 2017-09-16 19:04 | P.PN ---
Subjective Interval history: POD 1 I & D left neck submandibular/sublingual/mental/masseteric/medial pterygoid space abscess/infection I & D right neck submandibular space edema/infection extraction of teeth 18/19, root of 31 pt seen and examined this afternoon, and this evening, nurse at bedside extubated today reports feeling much better, able to talk, denies sob/difficult swallowing/difficulty breathing Physical Exam Vital signs: Vital Signs 09/15/17 20:00 09/15/17 23:46 09/16/17 00:00 Temperature 98.7 F 98.4 F Pulse Rate 100 H 98 H Respiratory Rate 22 16 16 Blood Pressure 132/90 134/83 Pulse Oximetry 98 100 100 09/16/17 03:55 09/16/17 04:00 09/16/17 08:00 Temperature 98.4 F Pulse Rate 90 85 Respiratory Rate 15 Blood Pressure 149/89 H Pulse Oximetry 100 100 09/16/17 08:01 09/16/17 11:13 09/16/17 12:00 Temperature 98.4 F Pulse Rate 52 L Respiratory Rate 15 14 14 Blood Pressure 113/57 L Pulse Oximetry 100 100 100 09/16/17 14:00 09/16/17 15:57 09/16/17 16:00 Temperature 98.7 F Pulse Rate 52 L 49 L Respiratory Rate 14 14 Blood Pressure 116/66 Pulse Oximetry 100 100 09/16/17 16:30 Temperature Pulse Rate Respiratory Rate Blood Pressure Pulse Oximetry 100 Intake & Output 09/15/17 09/16/17 09/16/17 18:59 06:59 18:59 Intake Total 291 / 291 400 / 400 Output Total 550 / 550 Balance -259 / -259 400 / 400 Weight 73 kg Intake: IV 291 / 291 400 / 400 Diprivan 1000 mg/100 ml Inj 1, 91 / 91 300 / 300 000 mg In 100 ml @ 5 MCG/KG/MIN 2.19 mls/hr IV.CONT TITRATE PRN Rx#:[id number] Unasyn Inj 3 GM In NS Inj 100 200 / 200 100 / 100 ML @ 200 mls/hr IV.SIG Q6H BUTCH Rx#:[id number] Output: Urine Amount (Catheter) 550 / 550 Indwelling Urethral Catheter 550 / 550 Other: Date of Last Bowel Movement 09/14/17 Weight On Admission 73.4 kg - Constitutional no acute distress - Routine HEENT Exam Head: Present: normocephalic - Detailed ENT Exam Oropharynx: Absent: drooling Oral mucosa: Present: moist Tongue: Absent: elevation (significant decrease in elevation of tongue, increase in range of opening,) Teeth numbered image: 1 - extraction sites hemostatic, wound margins well apprioximated Comments: drain in place, no pus noted - Routine Neck Exam Present: swelling (significant decreae in b/l neck edemea/tendernss, drains in place, no pus noted, minimal serous/sangous drainage). Absent: tracheal deviation - Urinary Catheter Management Indwelling Urethral Catheter Cath placed during this visit: no Reason for continuing: Other continuation reason Results - Labs CBC & Chem 7: 09/16/17 03:12 09/16/17 03:12 Laboratory Results - last 24 hr 09/15/17 09/16/17 09/16/17 17:54 00:28 03:12 WBC 13.2 H RBC 3.71 L Hgb 8.3 L Hct 25.4 L MCV 68.4 L MCH 22.3 L MCHC 32.6 RDW 21.3 H Plt Count 419 MPV 8.6 Neut % (Auto) 90.4 H Lymph % (Auto) 8.3 L [place] % (Auto) 1.2 Eos % (Auto) 0.0 Baso % (Auto) 0.1 Neut # (Auto) 11.9 H Lymph # (Auto) 1.1 [place] # (Auto) 0.2 Eos # (Auto) 0.0 Baso # (Auto) 0.0 WBC Differential . . Diff Scan Auto diff confirmed Differential Comment Auto diff final PT INR APTT Puncture Site Right radial Patient Temperature 98.6 O2 Saturation 98 ABG pH 7.49 H ABG pCO2 35 L ABG pO2 225 H ABG HCO3 27 H ABG O2 Content 12.2 ABG Base Excess 3.6 H ABG Methemoglobin 1.1 Slava Test Present Hemoglobin 8.5 L Carboxyhemoglobin 1.1 O2 Delivery Device Ventilator Vent Setting See comment Inspired O2 50 Critical Value No Sodium Potassium Chloride Carbon Dioxide Anion Gap BUN Creatinine Estimated GFR Random Glucose Lactic Acid Calcium Phosphorus Magnesium Total Bilirubin AST ALT Alkaline Phosphatase Total Protein Albumin Beta HCG, Quant 09/16/17 09/16/17 09/16/17 03:12 03:12 03:12 WBC RBC Hgb Hct MCV MCH MCHC RDW Plt Count MPV Neut % (Auto) Lymph % (Auto) [place] % (Auto) Eos % (Auto) Baso % (Auto) Neut # (Auto) Lymph # (Auto) [place] # (Auto) Eos # (Auto) Baso # (Auto) WBC Differential Diff Scan Differential Comment PT 11.9 H INR 1.2 APTT 25.4 Puncture Site Patient Temperature O2 Saturation ABG pH ABG pCO2 ABG pO2 ABG HCO3 ABG O2 Content ABG Base Excess ABG Methemoglobin Slava Test Hemoglobin Carboxyhemoglobin O2 Delivery Device Vent Setting Inspired O2 Critical Value Sodium 140 Potassium 4.1 Chloride 103 Carbon Dioxide 25.3 Anion Gap 12 BUN 14 Creatinine 0.77 Estimated GFR 84 L Random Glucose 151 H Lactic Acid 0.9 Calcium 8.8 Phosphorus 3.3 Magnesium 2.0 Total Bilirubin 0.4 AST 10 L ALT 11 Alkaline Phosphatase 109 Total Protein 8.2 D Albumin 2.9 L Beta HCG, Quant 09/16/17 03:12 WBC RBC Hgb Hct MCV MCH MCHC RDW Plt Count MPV Neut % (Auto) Lymph % (Auto) [place] % (Auto) Eos % (Auto) Baso % (Auto) Neut # (Auto) Lymph # (Auto) [place] # (Auto) Eos # (Auto) Baso # (Auto) WBC Differential Diff Scan Differential Comment PT INR APTT Puncture Site Patient Temperature O2 Saturation ABG pH ABG pCO2 ABG pO2 ABG HCO3 ABG O2 Content ABG Base Excess ABG Methemoglobin Slava Test Hemoglobin Carboxyhemoglobin O2 Delivery Device Vent Setting Inspired O2 Critical Value Sodium Potassium Chloride Carbon Dioxide Anion Gap BUN Creatinine Estimated GFR Random Glucose Lactic Acid Calcium Phosphorus Magnesium Total Bilirubin AST ALT Alkaline Phosphatase Total Protein Albumin Beta HCG, Quant Less than 1 Microbiology 09/15/17 21:30 Abscess - Mouth Gram Stain - Final 09/15/17 17:55 Blood - Peripheral Aerobic Blood Culture - Preliminary No growth in 1 day 09/15/17 17:55 Blood - Peripheral Anaerobic Blood Culture - Preliminary No growth in 1 day 09/15/17 17:50 Blood - Peripheral Aerobic Blood Culture - Preliminary No growth in 1 day 09/15/17 17:50 Blood - Peripheral Anaerobic Blood Culture - Preliminary No growth in 1 day - Imaging Impressions Soft Tissue Neck CT 09/15/17 17:37 CONCLUSION: Left floor of mouth abscess with adenopathy. Chest X-Ray 09/16/17 21:28 CONCLUSION: Endotracheal tube in good position. No significant lung consolidation. Assessment and Plan - Assessment (1) History of tooth extraction Code(s): K08.409 - Partial loss of teeth, unspecified cause, unspecified class Status: Acute (2) Abscess of oral space Code(s): K12.2 - Cellulitis and abscess of mouth Status: Acute - Plan can start with clear liquids at first, speech swallow trial pending continue abx cultures final result pending clinically appears better in 24 hrs s/p surgery plan to start to d/c drain tomorrow (1) History of tooth extraction Qualifiers: Tooth loss class: unspecified tooth loss Qualified Code(s): K08.409 - Partial loss of teeth, unspecified cause, unspecified class
--- NOTE | 2017-09-16 19:36 | US ---
EXAM DATE: 09/16/2017 7:25 PM EDT AGE/SEX: 37 years / Female INDICATIONS: Palpable pelvic lump. CLINICAL DATA: This is the patient's initial encounter. Patient reports that signs and symptoms have been present for 1 day and indicates a pain score of 0/10. MEDICAL/SURGICAL HISTORY: None. None. COMPARISON: No prior exams available for comparison. MEASUREMENTS: Uterus:__18.0 x 11.0 x 9.7 cm Endometrial Stripe:__11 mm Right Ovary:__ 5.9 x 3.7 x 2.2 cm Left Ovary:__ 5.0 x 2.0 x 2.2 cm FINDINGS: Uterus: The uterus is markedly enlarged and contains multiple round isoechoic masses, the largest of which measures 8.1 x 8.4 cm. Endometrial Stripe: The endometrial stripe is prominent with homogeneous echotexture and no endometr ial fluid. Right Ovary: Ovary contains no mass. Follicles are present. Left Ovary: Ovary contains no mass. Follicles are present. Fluid: No free fluid. Other: None. CONCLUSION: 1. Enlarged uterus containing multiple masses, probably fibroids, up to 8.4 cm in size. Electronically signed by: Lucas Greer MD 09/16/2017 7:34 PM EDT
[2017-09-17] MEDS: Morphine Inj 4 MG/ML Vial IV.PUSH PRN ×4 (03:20→22:09)
[2017-09-17] MEDS: Ampicillin/Sulbactam Inj 3 GM in Sodium Chloride 0.9% Inj 100 ML IV.SIG SCH ×4 (03:25→21:38)
[2017-09-17] MEDS: Heparin - SQ 10,000 UNITS/ML Vial SQ SCH ×3 (06:53→21:38)
--- NOTE | 2017-09-17 07:19 | P.PNCC ---
Subjective Subjective Remarks/Hospital Course: 37-year-old female who had a wisdom tooth extraction 5 days ago, presents today reporting increasing tongue swelling since then. Her tongue has gotten more swollen, constant, severe and she started to have some neck swelling. She is feels like she is gotten much worse in the past day. She has been feeling feverish and she has been unable to eat or drink for 2-3 days. She denies any trouble breathing at this time. 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 Postoperatively patient will remain intubated overnight in the ICU. 09/16: Patient is status post I & D left neck submandibular/sublingual abscess/ infection. I & D right neck submandibular space edema/infection, extraction of teeth 18/19, root of [address] Puente. Remains intubated today. I discussed with Dr. Puente. Patient's tongue was swollen yesterday, with airway compromise requiring nasotracheal intubation for OR. Will leave intubated until evaluated by Dr. Puente, add decadron 4 mg IV q6 09/17: Extubated yesterday tolerating well no stridor. Pain adequately controlled. Per Dr. Sharma tongue swelling has improved. Will discontinue Decadron Objective Vital Signs / I&O: Vital Signs 09/16/17 08:00 09/16/17 08:01 09/16/17 11:13 Temperature Pulse Rate 85 Respiratory Rate 15 14 Blood Pressure Pulse Oximetry 100 100 09/16/17 12:00 09/16/17 14:00 09/16/17 15:57 Temperature 98.4 F Pulse Rate 52 L 52 L Respiratory Rate 14 14 Blood Pressure 113/57 L Pulse Oximetry 100 100 09/16/17 16:00 09/16/17 16:30 09/16/17 18:00 Temperature 98.7 F Pulse Rate 49 L 79 Respiratory Rate 14 Blood Pressure 116/66 Pulse Oximetry 100 100 09/16/17 20:00 09/16/17 20:06 09/16/17 22:00 Temperature 98.4 F Pulse Rate 60 54 L Respiratory Rate Blood Pressure 145/79 H Pulse Oximetry 100 100 09/17/17 00:00 09/17/17 02:00 Temperature 97.8 F Pulse Rate 56 L 50 L Respiratory Rate 18 Blood Pressure 153/73 H Pulse Oximetry 100 Intake & Output 09/16/17 09/17/17 09/17/17 18:59 06:59 18:59 Intake Total 500 / 500 350 / 350 Output Total 500 / 500 1350 / 1350 Balance 0 / 0 -1000 / -1000 Intake: IV 500 / 500 350 / 350 Diprivan 1000 mg/100 ml Inj 1, 300 / 300 000 mg In 100 ml @ 5 MCG/KG/MIN 2.19 mls/hr IV.CONT TITRATE PRN Rx#:[id number] Unasyn Inj 3 GM In NS Inj 100 200 / 200 100 / 100 ML @ 200 mls/hr IV.SIG Q6H BUTCH Rx#:[id number] fentaNYL 10 mcg/mL Premix Drip 250 / 250 2,500 mcg In 250 ml @ 50 MCG/HR 5 mls/hr IV.SIG TITRATE PRN Rx #:[id number] Output: Urine Amount (Catheter) 500 / 500 1350 / 1350 Indwelling Urethral Catheter 500 / 500 1350 / 1350 Other: Date of Last Bowel Movement 09/14/17 09/14/17 # Bowel Movements 0 Result Diagrams: 09/16/17 03:12 09/16/17 03:12 Objective Remarks: GEN: Alert awake not in any acute distress Head: Present: normocephalic, atraumatic Eye: Present: PERRL ENT: Limited mouth opening limits my exam. No obvious stridor Neck Exam: Anterior dressing in place, Drains x4 Respiratory: No rhonchi, stridor, wheezes Cardiovascular: RRR, S1, S2 Abdomen: Soft, normoactive bowel sounds. Nontender Extremities: Cyanosis, clubbing, edema Neuro: Alert awake, no focal deficit. Following commands Assessment and Plan - Assessment and Plan Plan: A/P: Neuro: -Morphine for pain. Discontinue propofol and fentanyl Resp/ENT: Acute respiratory failure-resolved Left floor of mouth abscess with adenopathy -Status post I&D as above. Postop management per Dr. Kwame Vicente's as needed -According to Dr. Puente, posterior tongue swelling has improved -Decadron 4 mg IV every 6 hours DC today -s/p IV Lasix 20 mg x1 -No stridor post extubation CVS: -Hypertensive most likely from pain, improved ID: Sepsis Left floor of mouth abscess -Unasyn 3 every 6 hours -Follow-up on cultures ENDO: -Electrolyte replacement protocol Level 2 Hospitalist to assume care in a.m.
[2017-09-17] MEDS: Chlorhexidine 0.12% Oral Kit 15 ML UDC OROPHARYNG SCH ×3 (08:55→21:37)
[2017-09-17] MEDS: Senna/Docusate Sodium 8.6/50 MG Tablet PO SCH ×3 (08:56→21:38)
[2017-09-17] MEDS: Famotidine PF Inj 20 MG/2 ML Vial IV.PUSH SCH ×2 (08:57→21:37)
[2017-09-17] MEDS: Oral Hygiene Kit OROPHARYNG SCH ×5 (08:58→23:48)
[2017-09-17] MEDS: Chlorhexidine Gluconate 2% 1 Pack (2 Cloths) TOPICAL SCH (08:58)
--- NOTE | 2017-09-17 12:42 | P.PN ---
Subjective Interval history: POD 2 I & D left neck submandibular/sublingual/mental/masseteric/medial pterygoid space abscess/infection I & D right neck submandibular space edema/infection extraction of teeth 18/19, root of 31 pt seen and examined this afternoon, fiance at bedside reports feeling much better, able to talk, denies sob/difficult swallowing/difficulty breathing Physical Exam Vital signs: Vital Signs 09/16/17 14:00 09/16/17 15:57 09/16/17 16:00 Temperature 98.7 F Pulse Rate 52 L 49 L Respiratory Rate 14 14 Blood Pressure 116/66 Pulse Oximetry 100 100 09/16/17 16:30 09/16/17 18:00 09/16/17 20:00 Temperature 98.4 F Pulse Rate 79 60 Respiratory Rate Blood Pressure 145/79 H Pulse Oximetry 100 100 09/16/17 20:06 09/16/17 22:00 09/17/17 00:00 Temperature 97.8 F Pulse Rate 54 L 56 L Respiratory Rate 18 Blood Pressure 153/73 H Pulse Oximetry 100 100 09/17/17 02:00 09/17/17 04:00 09/17/17 06:00 Temperature 97.4 F L Pulse Rate 50 L 46 L 50 L Respiratory Rate Blood Pressure 140/72 Pulse Oximetry 100 09/17/17 07:46 09/17/17 08:00 09/17/17 11:49 Temperature 97.8 F Pulse Rate 55 L 57 L Respiratory Rate 14 Blood Pressure 157/78 H Pulse Oximetry 99 100 09/17/17 11:51 Temperature 98.4 F Pulse Rate 57 L Respiratory Rate 20 Blood Pressure 141/79 H Pulse Oximetry 100 Intake & Output 09/16/17 09/17/17 09/17/17 18:59 06:59 18:59 Intake Total 500 / 500 350 / 350 100 / 100 Output Total 500 / 500 1350 / 1350 Balance 0 / 0 -1000 / -1000 100 / 100 Intake: IV 500 / 500 350 / 350 100 / 100 Diprivan 1000 mg/100 ml Inj 1, 300 / 300 000 mg In 100 ml @ 5 MCG/KG/MIN 2.19 mls/hr IV.CONT TITRATE PRN Rx#:[id number] Unasyn Inj 3 GM In NS Inj 100 200 / 200 100 / 100 100 / 100 ML @ 200 mls/hr IV.SIG Q6H BUTCH Rx#:[id number] fentaNYL 10 mcg/mL Premix Drip 250 / 250 2,500 mcg In 250 ml @ 50 MCG/HR 5 mls/hr IV.SIG TITRATE PRN Rx #:[id number] Output: Urine Amount (Catheter) 500 / 500 1350 / 1350 Indwelling Urethral Catheter 500 / 500 1350 / 1350 Other: Date of Last Bowel Movement 09/14/17 09/14/17 09/14/17 # Bowel Movements 0 - Constitutional no acute distress - Routine HEENT Exam Head: Present: normocephalic ENT: Present: mucous membranes moist, oropharynx clear - Detailed ENT Exam Tongue: Absent: elevation, swelling - Routine Neck Exam Present: supple ( + rom, drains in place, no marlo discharge, signinficant decrease in neck edema) - Urinary Catheter Management Indwelling Urethral Catheter Cath placed during this visit: no Reason for continuing: Other continuation reason Results - Labs CBC & Chem 7: 09/16/17 03:12 09/16/17 03:12 Laboratory Results - last 24 hr 09/16/17 03:12 Beta HCG, Quant Less than 1 Microbiology 09/15/17 17:55 Blood - Peripheral Aerobic Blood Culture - Preliminary No growth in 2 days 09/15/17 17:55 Blood - Peripheral Anaerobic Blood Culture - Preliminary No growth in 2 days 09/15/17 17:50 Blood - Peripheral Aerobic Blood Culture - Preliminary No growth in 2 days 09/15/17 17:50 Blood - Peripheral Anaerobic Blood Culture - Preliminary No growth in 2 days 09/15/17 21:30 Wound - Mouth Acid Fast Bacilli Smear - Final No acid fast bacilli seen 09/15/17 21:30 Abscess - Mouth Fungal Smear - Final No fungal elements seen 09/15/17 21:30 Abscess - Mouth Gram Stain - Final - Imaging Impressions Pelvis Ultrasound 09/16/17 00:00 CONCLUSION: 1. Enlarged uterus containing multiple masses, probably fibroids, up to 8.4 cm in size. Assessment and Plan - Assessment (1) History of tooth extraction Code(s): K08.409 - Partial loss of teeth, unspecified cause, unspecified class Status: Acute (2) Abscess of oral space Code(s): K12.2 - Cellulitis and abscess of mouth Status: Acute - Plan can start with clear liquids at first, speech swallow trial pending continue abx cultures final result pending clinically appears better in s/p surgery significant increase in mouth opening significant decrease in neck edema , VSS removed right neck mago drain plan to remove remaining drains tomorrow (1) History of tooth extraction Qualifiers: Tooth loss class: unspecified tooth loss Qualified Code(s): K08.409 - Partial loss of teeth, unspecified cause, unspecified class
--- NOTE | 2017-09-17 15:02 | P.PNID ---
Subjective Remarks: doing better Improved swelling i\ and induration - 80% NO growth from blood and wound clx U/S cw fibroids no fever Antibiotics: Unasyn Allergies/Adverse Reactions: Allergies No Known Allergies Allergy (Verified 09/15/17 17:18) Objective Vital Signs 09/16/17 15:57 09/16/17 16:00 09/16/17 16:30 Temperature 98.7 F Pulse Rate 49 L Respiratory Rate 14 14 Blood Pressure 116/66 Pulse Oximetry 100 100 100 09/16/17 18:00 09/16/17 20:00 09/16/17 20:06 Temperature 98.4 F Pulse Rate 79 60 Respiratory Rate Blood Pressure 145/79 H Pulse Oximetry 100 100 09/16/17 22:00 09/17/17 00:00 09/17/17 02:00 Temperature 97.8 F Pulse Rate 54 L 56 L 50 L Respiratory Rate 18 Blood Pressure 153/73 H Pulse Oximetry 100 09/17/17 04:00 09/17/17 06:00 09/17/17 07:46 Temperature 97.4 F L Pulse Rate 46 L 50 L Respiratory Rate Blood Pressure 140/72 Pulse Oximetry 100 99 09/17/17 08:00 09/17/17 11:49 09/17/17 11:51 Temperature 97.8 F 98.4 F Pulse Rate 55 L 57 L 57 L Respiratory Rate 14 20 Blood Pressure 157/78 H 141/79 H Pulse Oximetry 100 100 Intake & Output 09/16/17 09/17/17 09/17/17 18:59 06:59 18:59 Intake Total 500 / 500 350 / 350 100 / 100 Output Total 500 / 500 1350 / 1350 Balance 0 / 0 -1000 / -1000 100 / 100 Intake: IV 500 / 500 350 / 350 100 / 100 Diprivan 1000 mg/100 ml Inj 1, 300 / 300 000 mg In 100 ml @ 5 MCG/KG/MIN 2.19 mls/hr IV.CONT TITRATE PRN Rx#:[id number] Unasyn Inj 3 GM In NS Inj 100 200 / 200 100 / 100 100 / 100 ML @ 200 mls/hr IV.SIG Q6H BUTCH Rx#:[id number] fentaNYL 10 mcg/mL Premix Drip 250 / 250 2,500 mcg In 250 ml @ 50 MCG/HR 5 mls/hr IV.SIG TITRATE PRN Rx #:[id number] Output: Urine Amount (Catheter) 500 / 500 1350 / 1350 Indwelling Urethral Catheter 500 / 500 1350 / 1350 Other: Date of Last Bowel Movement 09/14/17 09/14/17 09/14/17 # Bowel Movements 0 09/15/17 17:55 Blood - Peripheral Aerobic Blood Culture - Preliminary No growth in 2 days 09/15/17 17:55 Blood - Peripheral Anaerobic Blood Culture - Preliminary No growth in 2 days 09/15/17 17:50 Blood - Peripheral Aerobic Blood Culture - Preliminary No growth in 2 days 09/15/17 17:50 Blood - Peripheral Anaerobic Blood Culture - Preliminary No growth in 2 days 09/15/17 21:30 Wound - Mouth Acid Fast Bacilli Smear - Final No acid fast bacilli seen 09/15/17 21:30 Wound - Mouth Mycobacterial Culture - Pending 09/15/17 21:30 Abscess - Mouth Fungal Smear - Final No fungal elements seen 09/15/17 21:30 Abscess - Mouth Fungal Culture - Pending 09/15/17 21:30 Abscess - Mouth Gram Stain - Final 09/15/17 21:30 Abscess - Mouth Wound Culture - Pending Lab - Hematology Results 09/15/17 09/16/17 17:54 03:12 CBC w Diff Slide review pending WBC 14.5 H 13.2 H RBC 4.18 3.71 L Hgb 9.5 L 8.3 L Hct 29.9 L 25.4 L MCV 71.5 L 68.4 L MCH 22.7 L 22.3 L MCHC 31.7 L 32.6 RDW 20.2 H 21.3 H Plt Count 484 H 419 MPV 9.2 8.6 Neut % (Auto) 87.3 H 90.4 H Lymph % (Auto) 5.9 L 8.3 L [place] % (Auto) 5.2 1.2 Eos % (Auto) 0.0 0.0 Baso % (Auto) 1.6 0.1 Neut # (Auto) 12.6 H 11.9 H Lymph # (Auto) 0.9 L 1.1 [place] # (Auto) 0.8 0.2 Eos # (Auto) 0.0 0.0 Baso # (Auto) 0.2 0.0 WBC Differential . . Diff Scan Auto diff confirmed Differential Comment . Auto diff final Lab - Chemistry Results 09/15/17 09/15/17 09/16/17 17:54 17:57 03:12 Sodium 137 140 Potassium 3.9 4.1 Chloride 99 103 Carbon Dioxide 26.4 25.3 Anion Gap 12 12 BUN 12 14 Creatinine 0.86 0.77 Estimated GFR 74 L 84 L Random Glucose 98 151 H Lactic Acid 0.8 Calcium 9.1 8.8 Phosphorus 3.3 Magnesium 2.0 Total Bilirubin 0.5 0.4 AST 15 10 L ALT 11 11 Alkaline Phosphatase 122 H 109 Total Protein 9.3 H 8.2 D Albumin 3.3 L 2.9 L Beta HCG, Quant 09/16/17 09/16/17 03:12 03:12 Sodium Potassium Chloride Carbon Dioxide Anion Gap BUN Creatinine Estimated GFR Random Glucose Lactic Acid 0.9 Calcium Phosphorus Magnesium Total Bilirubin AST ALT Alkaline Phosphatase Total Protein Albumin Beta HCG, Quant Less than 1 Imaging: ITS Impressions Soft Tissue Neck CT 09/15/17 17:37 CONCLUSION: Left floor of mouth abscess with adenopathy. Pelvis Ultrasound 09/16/17 00:00 CONCLUSION: 1. Enlarged uterus containing multiple masses, probably fibroids, up to 8.4 cm in size. Chest X-Ray 09/16/17 21:28 CONCLUSION: Endotracheal tube in good position. No significant lung consolidation. Physical Exam: GENERAL: SKIN: Warm and dry. HEAD: Atraumatic. Normocephalic. EYES: Pupils equal and round. No scleral icterus. No injection or drainage. ENT: No nasal bleeding or discharge. Mucous membranes pink and moist. NECK: Trachea midline. No JVD. Improved induration o f L side of the neck CARDIOVASCULAR: Regular rate and rhythm. RESPIRATORY: No accessory muscle use. Clear to auscultation. Breath sounds equal bilaterally. GASTROINTESTINAL: Abdomen soft, non-tender, nondistended. Hepatic and splenic margins not palpable. + palpable mass MUSCULOSKELETAL: Extremities without clubbing, cyanosis, or edema. No obvious deformities. NEUROLOGICAL: Awake and alert. No obvious cranial nerve deficits. Motor grossly within normal limits. Five out of 5 muscle strength in the arms and legs. Normal speech. PSYCHIATRIC: Appropriate mood and affect; insight and judgment normal. Assessment and Plan (1) Pelvic mass Status: Acute Code(s): R19.00 - Intra-abdominal and pelvic swelling, mass and lump, unspecified site (2) Abscess of oral space Status: Acute Code(s): K12.2 - Cellulitis and abscess of mouth - Plan left submandibular/sublingual/mental/masseteric/medial pterygoid space abscess , sp surgical drainage - cl P - Gstain cw mixed oral stephen - clx negative - improving Pelvic mass - cw fibroids - cont Unasyn - Once ready for d/c switch to augmentin 500 tid to complete 10-14 days of abx
[2017-09-17] MEDS: Zolpidem Tartrate 5 MG Tablet PO PRN ×2 (21:39→23:46)
[2017-09-18] MEDS: Oral Hygiene Kit OROPHARYNG SCH ×2 (03:31→12:03)
[2017-09-18] MEDS: Chlorhexidine Gluconate 2% 1 Pack (2 Cloths) TOPICAL SCH (03:31)
[2017-09-18] MEDS: Ampicillin/Sulbactam Inj 3 GM in Sodium Chloride 0.9% Inj 100 ML IV.SIG SCH ×2 (06:06→10:16)
[2017-09-18] MEDS: Heparin - SQ 10,000 UNITS/ML Vial SQ SCH (06:06)
[2017-09-18] MEDS: Famotidine PF Inj 20 MG/2 ML Vial IV.PUSH SCH (08:11)
[2017-09-18] MEDS: Chlorhexidine 0.12% Oral Kit 15 ML UDC OROPHARYNG SCH (08:12)
[2017-09-18 09:07] VITALS: RESP 17
--- NOTE | 2017-09-18 09:29 | P.PNIM ---
Subjective Interval history: Swelling has improved and tolerating clear liquid diet. Wants to hold home today if drains removed by Dr. Puente. Physical Exam Vital signs: Vital Signs 09/17/17 11:49 09/17/17 11:51 09/17/17 16:00 Temperature 98.4 F 98.3 F Pulse Rate 57 L 57 L 73 Respiratory Rate 20 12 Blood Pressure 141/79 H 170/76 H Pulse Oximetry 100 98 09/17/17 20:00 09/18/17 00:00 09/18/17 08:00 Temperature 97.4 F L 98 F 97.9 F Pulse Rate 73 68 67 Respiratory Rate 20 20 17 Blood Pressure 153/94 H 134/83 140/88 Pulse Oximetry 98 96 97 Intake & Output 09/17/17 09/18/17 09/18/17 18:59 06:59 18:59 Intake Total 300 / 300 580 / 580 Balance 300 / 300 580 / 580 Weight 76.1 kg Intake: IV 300 / 300 100 / 100 Unasyn Inj 3 GM In NS Inj 100 300 / 300 100 / 100 ML @ 200 mls/hr IV.SIG Q6H BUTCH Rx#:[id number] Oral 480 / 480 Other: # Voids 3 Date of Last Bowel Movement 09/14/17 09/15/17 09/15/17 Narrative: GENERAL: This is a well-nourished, well-developed patient, in no apparent distress. HEENT: bandage circumferentially around jaw clean dry and intact. Oropharynx still with some swelling draining in place. CARDIOVASCULAR: Regular rate and rhythm RESPIRATORY: Clear to auscultation. Breath sounds equal bilaterally. No wheezes , rales, or rhonchi. MUSCULOSKELETAL: Extremities without clubbing, cyanosis, or edema. NEURO: Alert & Oriented x4 to person, place, time, situation. Moves all ext x4 - Urinary Catheter Management Indwelling Urethral Catheter Cath placed during this visit: no Reason for continuing: Other continuation reason Results - Labs CBC & Chem 7: 09/16/17 03:12 09/16/17 03:12 Microbiology 09/15/17 17:55 Blood - Peripheral Aerobic Blood Culture - Preliminary No growth in 2 days 09/15/17 17:55 Blood - Peripheral Anaerobic Blood Culture - Preliminary No growth in 2 days 09/15/17 17:50 Blood - Peripheral Aerobic Blood Culture - Preliminary No growth in 2 days 09/15/17 17:50 Blood - Peripheral Anaerobic Blood Culture - Preliminary No growth in 2 days 09/15/17 21:30 Wound - Mouth Acid Fast Bacilli Smear - Final No acid fast bacilli seen 09/15/17 21:30 Abscess - Mouth Fungal Smear - Final No fungal elements seen - Procedures 09/15 I & D left neck submandibular/sublingual/mental/masseteric/medial pterygoid space abscess/infection I & D right neck submandibular space edema/infection extraction of teeth 18/19, root of 31 09/15 mechanical intubation and ventilation Assessment and Plan - Plan Acute respiratory failure-resolved Left floor of mouth abscess with adenopathy Status post operative day #3 I & D left neck submandibular/sublingual/mental/masseteric/medial pterygoid space abscess/infection I & D right neck submandibular space edema/infection extraction of teeth 18/19, root of [address] Puente, anticipate drainage removal today and possible clearance for discharge -DuoNeb's as needed -According to Dr. Puente, posterior tongue swelling has improved -Decadron 4 mg IV every 6 hours was given previously and now discontinued. -s/p IV Lasix 20 mg x1 -No stridor post extubation Sepsis Left floor of mouth abscess -Unasyn 3 every 6 hours -Follow-up on cultures Infectious disease, Dr. Manrique recommends switch over to oral Augmentin for 10 -14 more days total course upon discharge to home. -Hypertensive most likely from pain, improved Discharge Planning: Discharge to home when cleared by Dr. Puente
[2017-09-18] MEDS: Senna/Docusate Sodium 8.6/50 MG Tablet PO SCH (09:36)
--- NOTE | 2017-09-18 09:38 | P.DS ---
Date of admission: 09/15/17 18:32 Primary care physician: No Primary Care Physician Anticipated date of discharge: 09/18/17 Brief History from admission: Obtained from admitting physician's H&P 37-year-old female who had a wisdom tooth extraction 5 days ago, presents today reporting increasing tongue swelling since then. Her tongue has gotten more swollen, constant, severe and she started to have some neck swelling. She is feels like she is gotten much worse in the past day. She has been feeling feverish and she has been unable to eat or drink for 2-3 days. She denies any trouble breathing at this time. 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 Postoperatively patient will remain intubated overnight in the ICU. DS: Diagnosis - Discharge Diagnosis (1) Abscess of oral space Status: Resolved (2) Sepsis Status: Resolved Diagnosis: Principal (3) Acute respiratory failure Status: Resolved Diagnosis: Secondary DS: Medications - Discharge Medications Prescriptions: amoxicillin-pot clavulanate [Augmentin] 1 tab PO Q12H #20 tab hydrocodone-acetaminophen 1 tab PO Q4-6H PRN #12 tab PRN Reason: Acute Pain nystatin 4 ml PO QID #400 ml DS: Summary Hospital Course: These are the medical issues addressed during this hospitalization: Acute respiratory failure-resolved Left floor of mouth abscess with adenopathy Status post operative day #3 I & D left neck submandibular/sublingual/mental/masseteric/medial pterygoid space abscess/infection I & D right neck submandibular space edema/infection extraction of teeth 18/19, root of [address] Puente, anticipate drainage removal today and possible clearance for discharge -DuoNeb's as needed -According to Dr. Puente, posterior tongue swelling has improved -Decadron 4 mg IV every 6 hours was given previously and now discontinued. -s/p IV Lasix 20 mg x1 -No stridor post extubation Sepsis Left floor of mouth abscess -Unasyn 3 every 6 hours -Follow-up on cultures Infectious disease, Dr. Manrique recommends switch over to oral Augmentin for 10 -14 more days total course upon discharge to home. -Hypertensive most likely from pain, improved - Time Spent with Patient Total time spent providing and/or coordinating discharge services: Less than 30 minutes - Quality: VTE Deep Vein Thrombosis/Pulmonary Embolism Present on Admission: No Exam Vital signs: Vital Signs 09/17/17 11:49 09/17/17 11:51 09/17/17 16:00 Temperature 98.4 F 98.3 F Pulse Rate 57 L 57 L 73 Respiratory Rate 20 12 Blood Pressure 141/79 H 170/76 H Pulse Oximetry 100 98 09/17/17 20:00 09/18/17 00:00 09/18/17 08:00 Temperature 97.4 F L 98 F 97.9 F Pulse Rate 73 68 67 Respiratory Rate 20 20 17 Blood Pressure 153/94 H 134/83 140/88 Pulse Oximetry 98 96 97 Intake & Output 09/17/17 09/18/17 09/18/17 18:59 06:59 18:59 Intake Total 300 / 300 580 / 580 Balance 300 / 300 580 / 580 Weight 76.1 kg Intake: IV 300 / 300 100 / 100 Unasyn Inj 3 GM In NS Inj 100 300 / 300 100 / 100 ML @ 200 mls/hr IV.SIG Q6H BUTCH Rx#:[id number] Oral 480 / 480 Other: # Voids 3 Date of Last Bowel Movement 09/14/17 09/15/17 09/15/17 Narrative: GENERAL: This is a well-nourished, well-developed patient, in no apparent distress. HEENT: Circumferential bandage over the jaw in place clean dry intact, draining in place and oropharynx with decreased swelling CARDIOVASCULAR: Regular rate and rhythm without murmurs, gallops, or rubs. RESPIRATORY: Clear to auscultation. Breath sounds equal bilaterally. No wheezes , rales, or rhonchi. MUSCULOSKELETAL: Extremities without clubbing, cyanosis, or edema. NEURO: Alert & Oriented x4 to person, place, time, situation. Moves all ext x4 Results Procedures completed during hospitalization: 09/15 I & D left neck submandibular/sublingual/mental/masseteric/medial pterygoid space abscess/infection I & D right neck submandibular space edema/infection extraction of teeth 18/19, root of 31 09/15 mechanical intubation and ventilation Labs on day of discharge: Preliminary micro results at discharge 09/15/17 17:55 Aerobic Blood Culture - Preliminary Blood - Peripheral No growth in 2 days Anaerobic Blood Culture - Preliminary No growth in 2 days 09/15/17 17:50 Aerobic Blood Culture - Preliminary Blood - Peripheral No growth in 2 days Anaerobic Blood Culture - Preliminary No growth in 2 days - Impressions ITS Impressions Soft Tissue Neck CT 09/15/17 17:37 CONCLUSION: Left floor of mouth abscess with adenopathy. Pelvis Ultrasound 09/16/17 00:00 CONCLUSION: 1. Enlarged uterus containing multiple masses, probably fibroids, up to 8.4 cm in size. Chest X-Ray 09/16/17 21:28 CONCLUSION: Endotracheal tube in good position. No significant lung consolidation. Discharge Plan - Discharge Disposition Patient Disposition: 01 Discharge Home - Discharge Condition Condition: Stable - Discharge Order Discharge Orders: Discharge Order (Routine); Ordered 09/18/17 Ordered By: Melissa Gupta - Discharge Details Anticipated Discharge Date: 09/18/17 - Physicians Team Primary Care Provider: Primary Care Magalie,Catherine Attending Provider: Melissa Gupta Other Providers: Cathy Manrique MD ; Eyad Puente, BUFFY
[2017-09-18] MEDS: Morphine Inj 4 MG/ML Vial IV.PUSH PRN (10:11)
--- NOTE | 2017-09-18 12:38 | P.PN ---
Subjective Interval history: POD 3 I & D left neck submandibular/sublingual/mental/masseteric/medial pterygoid space abscess/infection I & D right neck submandibular space edema/infection extraction of teeth 18/19, root of 31 pt seen and examined this afternoon, fiance/nurse at bedside reports feeling much better, able to talk, denies sob/difficult swallowing/difficulty breathing ambulating, voiding, tolerating full liquid diet well. Physical Exam Vital signs: Vital Signs 09/17/17 16:00 09/17/17 20:00 09/18/17 00:00 Temperature 98.3 F 97.4 F L 98 F Pulse Rate 73 73 68 Respiratory Rate 12 20 20 Blood Pressure 170/76 H 153/94 H 134/83 Pulse Oximetry 98 98 96 09/18/17 08:00 Temperature 97.9 F Pulse Rate 67 Respiratory Rate 17 Blood Pressure 140/88 Pulse Oximetry 97 Intake & Output 09/17/17 09/18/17 09/18/17 18:59 06:59 18:59 Intake Total 300 / 300 680 / 680 Balance 300 / 300 680 / 680 Weight 76.1 kg Intake: IV 300 / 300 200 / 200 Unasyn Inj 3 GM In NS Inj 100 300 / 300 200 / 200 ML @ 200 mls/hr IV.SIG Q6H BUTCH Rx#:[id number] Oral 480 / 480 Other: # Voids 3 Date of Last Bowel Movement 09/14/17 09/15/17 09/15/17 - Constitutional no acute distress - Routine HEENT Exam Head: Present: normocephalic - Detailed ENT Exam Oropharynx: Absent: drooling, lip swelling Oral mucosa: Present: moist Comments: continued decrease in neck/tongue edema no elevation fom/tongue no deviation of uvula increased range of opening mouth all [address], no pus/discharge note neck soft/no tenderness/ no drainable collection noted - Routine Neck Exam Present: supple. Absent: tracheal deviation - Routine Neurological Exam Present: alert, oriented X3 - Urinary Catheter Management Indwelling Urethral Catheter Cath placed during this visit: no Reason for continuing: Other continuation reason Results - Labs CBC & Chem 7: 09/16/17 03:12 09/16/17 03:12 Microbiology 09/15/17 17:55 Blood - Peripheral Aerobic Blood Culture - Preliminary No growth in 3 days 09/15/17 17:55 Blood - Peripheral Anaerobic Blood Culture - Preliminary No growth in 3 days 09/15/17 17:50 Blood - Peripheral Aerobic Blood Culture - Preliminary No growth in 3 days 09/15/17 17:50 Blood - Peripheral Anaerobic Blood Culture - Preliminary No growth in 3 days 09/15/17 21:30 Abscess - Mouth Gram Stain - Final 09/15/17 21:30 Abscess - Mouth Wound Culture - Final Danyelle albicans - Procedures 09/15 I & D left neck submandibular/sublingual/mental/masseteric/medial pterygoid space abscess/infection I & D right neck submandibular space edema/infection extraction of teeth 18/19, root of 31 09/15 mechanical intubation and ventilation Assessment and Plan - Assessment (1) History of tooth extraction Code(s): K08.409 - Partial loss of teeth, unspecified cause, unspecified class Status: Acute (2) Abscess of oral space Code(s): K12.2 - Cellulitis and abscess of mouth Status: Resolved - Plan continue abx cultures- no afb C. albicans clinically appears better in s/p surgery significant increase in mouth opening significant decrease in neck edema , VSS irrigated with saline solution removed remaining 3 mago drains id for dc/ abx/danyelle ok to d/c to home form oms standpoint f/up dr perry in 2 days [phone] warm compress neck- 20 min on 20 min off x 48 hrs maintain good oral hygiene - (1) History of tooth extraction Qualifiers: Tooth loss class: unspecified tooth loss Qualified Code(s): K08.409 - Partial loss of teeth, unspecified cause, unspecified class
[2017-09-18 12:48] VITALS: BP 148/98; PULSE 62; TEMP 96.9; O2SAT 98
== END 2017-09-18 15:38 | disposition home or self-care (01) ==
LOC: PHED 17:11 → PHEDA 18:32 → N03 19:28 → N04 09-17 18:31
PROVIDERS: ADMIT Family Medicine; ATTEND Family Medicine
PROC: IDMOUTH (2017-09-15 20:34)
DX: F12.90 Cannabis use, unspecified, uncomplicated; Z98.818 Other dental procedure status; R59.9 Enlarged lymph nodes, unspecified; K12.2 Cellulitis and abscess of mouth; Z79.899 Other long term (current) drug therapy; A41.9 Sepsis, unspecified organism; K59.00 Constipation, unspecified; J96.00 Acute respiratory failure, unspecified whether with hypoxia or hypercapnia; K02.9 Dental caries, unspecified; Z79.891 Long term (current) use of opiate analgesic